=== PATIENT | female | born 1975 | race African-American/Black ===

== ENCOUNTER 2024-12-04 12:14 | Emergency (ER) | payer MEDICAID, OTHER ==
[~2024-12-04] VITALS: Ht 165.1 cm; Wt 81.0 kg
[2024-12-04 12:18] VITALS: O2SAT 98
[2024-12-04] MEDS ORDERED: AMLO5TAB5 PO (12:20)
[2024-12-04] MEDS ORDERED: HYDROCODONE/ACETAMINOPHEN 5/325MG TABLET PO ONE (12:45)
[2024-12-04 15:49] LABS: BASOPHILS % 0.5 % (0.0-2.0); EOSINOPHILS % 0.1 % (0.0-5.0); HEMATOCRIT. 37.7 % (36.0-48.0); HEMOGLOBIN. 12.7 g/dL (12.0-16.0); LYMPHOCYTES % 9.4 % (20.0-50.0); MEAN CORPUSCULAR HEMOGLOBIN 33.4 pg (28.0-32.0); MEAN CORPUSCULAR HGB CONC 33.8 g/dL (31.0-37.0); MEAN CORPUSCULAR VOLUME 98.9 fL (81.0-99.0); MEAN PLATELET VOLUME 8.4 fl (7.4-10.4); PLATELET 136 x1000/uL (130-400); RED BLOOD CELL COUNT 3.81 mill/uL (4.2-5.4); RED CELL DISTRIBUTION WIDTH 14.3 % (11.6-14.6); WHITE BLOOD COUNT 5.3 x1000/uL (4.5-11.0)
[2024-12-04 15:58] LABS: CHLORIDE 97 mEq/L (98-107); POTASSIUM 3.6 mEq/L (3.5-5.1); SODIUM 137 mEq/L (136-145)
[2024-12-04 16:00] LABS: CALCIUM 9.2 mg/dL (8.7-10.4); CARBON DIOXIDE 29 mEq/L (21-32)
[2024-12-04 16:04] LABS: CREATININE 0.6 mg/dL (0.6-1.0); GLUCOSE 98 mg/dL (70-105); UREA NITROGEN BLOOD 9 mg/dL (9-23)
[2024-12-04 16:11] LABS: TROPONIN I HIGH SENSITIVITY < 4 ng/L (3.0-34)
[2024-12-04] MEDS ORDERED: LIDO700A30 TP (16:35)
[2024-12-04] MEDS: HYDROCODONE/ACETAMINOPHEN 5/325MG TABLET PO NR (16:55)
[2024-12-04] MEDS: LIDOCAINE 5% PATCH TOP SCH (16:55)
[2024-12-04 17:00] VITALS: BP 161/89; PULSE 92; RESP 18; TEMP 37.1; O2SAT 98
== END 2024-12-04 17:01 | disposition home or self-care (01) ==
LOC: ER 12:14 → EDBEDREQ 13:30 → ER 17:01
DX: R07.89 Other chest pain (principal); I10 Essential (primary) hypertension
CPT/HCPCS: 36415; 71045; 80048; 83880; 84484; 85025; 93005; 99285